=== PATIENT | female | born 1965 | race African-American/Black ===

== ENCOUNTER 2019-10-01 10:47 | Observation (INO) ==
[2019-10-01] MEDS ORDERED: diphenhydrAMINE 50 MG/1 ML VIAL IV STA (10:57)
[2019-10-01] MEDS ORDERED: FAMOTIDINE 20 MG/2 ML VIAL IV STA (10:57)
[2019-10-01] MEDS ORDERED: LABETALOL 20 MG/4 ML SYRINGE IV STA (10:57)
[2019-10-01] MEDS ORDERED: methylPREDNISolone SOD SUC 125 MG/2 ML VIAL IV STA (10:57)
[2019-10-01] MEDS ORDERED: diphenhydrAMINE 50 MG/1 ML VIAL ONE (10:58)
[2019-10-01] MEDS ORDERED: LABETALOL 20 MG/4 ML SYRINGE IV ONE (10:58)
[2019-10-01] MEDS ORDERED: methylPREDNISolone SOD SUC 125 MG/2 ML VIAL ONE (10:59)
[2019-10-01] MEDS ORDERED: FAMOTIDINE 20 MG/2 ML VIAL IV ONE (10:59)
[2019-10-01] MEDS: ALBUTEROL 2.5 MG/3 ML NEB RESP TX SCH (11:15)
[2019-10-01 11:47] LABS: Basophils % 0.3 % (0.0-0.8); Eosinophils % 0.7 % (0.00-10.9); Hematocrit 45.7 VOL% (35.7-47.0); Hemoglobin 15.5 GM/DL (12.0-16.0); Lymphocytes # 1.4 10*3/uL (1.4-4.0); Lymphocytes % 45.9 % (21.3-54.2); Mean Corpuscular HGB Conc 33.9 GM/DL (32-36); Mean Corpuscular Volume 98.3 FL (87-102); Mean Platelet Volume 9.6 FL (9.6-12.0); Monocytes % 10.9 % (1.7-12.7); Neutrophils % 42.2 % (38.7-73.9); Platelet Count 197 T/CUMM (130-400); Red Blood Count 4.65 MC/CUMM (3.8-5.5); Red Cell Distribution Width 13.6 % (9.3-17.3)
[2019-10-01 12:06] LABS: Calcium 8.8 MG/DL (8.5-10.1); Osmolality,Calculated 273.7 MOS/KG (273-304)
[2019-10-01] MEDS ORDERED: ONDANSETRON 4 MG/2 ML VIAL IV PRN (14:19)
[2019-10-01] MEDS ORDERED: DEXTROSE 50% 25 GM/50 ML VIAL IV PRN (14:19)
[2019-10-01] MEDS ORDERED: GLUCAGON 1 MG VIAL IM PRN (14:19)
[2019-10-01] MEDS ORDERED: diphenhydrAMINE 50 MG/1 ML VIAL IV PRN (15:48)
[2019-10-01] MEDS: SODIUM CHLORIDE 0.9% 1,000 ML IV SCH (16:08)
[2019-10-01] MEDS: NICOTINE 21 MG/24 HR PATCH TRANSDERM SCH (16:08)
[2019-10-01] MEDS: amLODIPine 5 MG TABLET PO SCH (16:09)
[2019-10-01] MEDS: CETIRIZINE 10 MG TABLET PO SCH (17:13)
[2019-10-01] MEDS ORDERED: FOLIC ACID 1 MG TABLET PO SCH (21:00)
[2019-10-02] MEDS: methylPREDNISolone SOD SUC 40 MG/1 ML VIAL IV SCH ×2 (00:42→11:39)
[2019-10-02] MEDS: SODIUM CHLORIDE 0.9% 1,000 ML IV SCH (05:24)
[2019-10-02 05:32] LABS: Barbiturates Screen,Urine Negative (Negative); Benzodiazepines Screen,Urine Negative (Negative); Cannabinoid Screen,Urine Positive (Negative); Opiate Screen,Urine Negative (Negative); Phencyclidine Screen,Urine Negative (Negative)
[2019-10-02 06:07] LABS: Basophils % 0.1 % (0.0-0.8); Hematocrit 44.8 VOL% (35.7-47.0); Immature Granulocytes % 0.3 %; Immature Granulocytes Absolute 0.02 #; Lymphocytes # 0.7 10*3/uL (1.4-4.0); Lymphocytes % 8.5 % (21.3-54.2); Mean Corpuscular HGB Conc 33.5 GM/DL (32-36); Mean Corpuscular Volume 98.7 FL (87-102); Mean Platelet Volume 9.5 FL (9.6-12.0); Monocytes % 1.2 % (1.7-12.7); Neutrophils % 89.9 % (38.7-73.9); Platelet Count 244 T/CUMM (130-400); Red Blood Count 4.54 MC/CUMM (3.8-5.5); Red Cell Distribution Width 13.5 % (9.3-17.3); White Blood Count 7.8 T/CUMM (4-12)
[2019-10-02 06:20] LABS: Calcium 9.1 MG/DL (8.5-10.1); Osmolality,Calculated 273.7 MOS/KG (273-304)
[2019-10-02] MEDS: NICOTINE 21 MG/24 HR PATCH TRANSDERM SCH (08:31)
[2019-10-02] MEDS: CETIRIZINE 10 MG TABLET PO SCH (08:32)
[2019-10-02] MEDS: amLODIPine 5 MG TABLET PO SCH (08:32)
[2019-10-02] MEDS ORDERED: FAMOTIDINE 20 MG TABLET PO SCH (09:00)
[2019-10-02 11:34] VITALS: BP 121/81
== END 2019-10-02 12:21 | disposition home or self-care (01) ==
LOC: EDUNIT# → EDBD → N.3E 10:47 → N.ED 10:47 → N.3E 15:15
PROVIDERS: ADMIT Internal Medicine; ATTEND Internal Medicine

== ENCOUNTER 2021-09-30 18:45 | Inpatient (IN) ==
[2021-09-30] MEDS ORDERED: THIAMINE INJ 100 MG, FOLIC ACID INJ 1 MG, MAGNESIUM SULF INJ 2 GM, MULTIVITAMIN INJ 10 ... IV STA (19:39)
[2021-09-30 20:31] LABS: Basophils % 0.2 % (0.0-0.8); Hematocrit 50.5 VOL% (35.7-47.0); Hemoglobin 17.3 GM/DL (12.0-16.0); Immature Granulocytes % 0.4 %; Immature Granulocytes Absolute 0.04 #; Lymphocytes # 0.6 10*3/uL (1.4-4.0); Lymphocytes % 6.1 % (21.3-54.2); Mean Corpuscular HGB Conc 34.3 GM/DL (32-36); Mean Corpuscular Volume 97.1 FL (87-102); Monocytes # 1.2 10*3/uL (0.11-0.8); Monocytes % 11.7 % (1.7-12.7); Neutrophils % 81.6 % (38.7-73.9); Platelet Count 256 T/CUMM (130-400); Red Cell Distribution Width 13.2 % (9.3-17.3); White Blood Count 10.4 T/CUMM (4-12)
[2021-09-30 20:57] LABS: Alanine Aminotransferase 83 U/L (13-56); Albumin 3.7 G/DL (3.4-5.0); Alkaline Phosphatase 97 U/L (45-117); Aspartate Amino Transferase 700 U/L (0-37); Blood Urea Nitrogen 14 MG/DL (7-18); Calcium 10.1 MG/DL (8.5-10.1); Carbon Dioxide 30 MMOL/L (21-32); Chloride 97 MMOL/L (98-107); Estimated Glom Filtration Rate 72 ML/MIN; Glucose 112 MG/DL (74-106); Osmolality,Calculated 271.1 MOS/KG (273-304); Potassium 4.3 MMOL/L (3.5-5.1); Sodium 135 MMOL/L (136-145); Total Protein 9.1 G/DL (6.4-8.2)
[2021-09-30] MEDS ORDERED: SODIUM CHLORIDE 0.9% 1,500 ML IV STA (21:35)
[2021-09-30 21:39] LABS: Mucus,Urine Occasional /LPF (Occasional); Squamous Epithelial Cell,Urine Occasional /HPF (0-10)
[2021-09-30 21:40] LABS: Glucose,Urine (UA) Negative (Negative); Protein,Urine 100 mg/dL (Negative); Urine Appearance Clear (Clear); Urine Color Yellow (Yellow); Urine Specific Gravity > 1.030 (1.001-1.035); Urine pH 5.5 (4.5-8.0)
[2021-09-30 21:41] LABS: Bilirubin,Urine Small mg/dL (Negative); Blood, Urine Moderate mg/dL (Negative); Ketones,Urine Moderate mg/dL (Negative); Nitrite,Urine Negative (Negative); Urine Urobilinogen 0.2 eU/dL (<2.0)
[2021-09-30 21:55] LABS: Barbiturates Screen,Urine Negative (Negative); Benzodiazepines Screen,Urine Negative (Negative); Cannabinoid Screen,Urine Positive (Negative); Opiate Screen,Urine Negative (Negative); Phencyclidine Screen,Urine Negative (Negative)
[2021-09-30] MEDS ORDERED: cefTRIAXone 1,000 MG in SODIUM CHLORIDE 0.9% 100 ML IV STA (21:59)
[2021-09-30] MEDS ORDERED: FUROSEMIDE 40 MG/4 ML VIAL IV STA (23:32)
[2021-10-01] MEDS ORDERED: ASPIRIN EC 325 MG TABLET PO STA (00:18)
[2021-10-01] MEDS ORDERED: ASPIRIN 325 MG TABLET ONE (00:19)
[2021-10-01] MEDS ORDERED: ENOXAPARIN 30 MG/0.3 ML SYRINGE SUBCUT STA (00:30)
[2021-10-01] MEDS ORDERED: NITROGLYCERIN DRIP 50 MG/250 ML BOTTLE IV SCH (00:30)
[2021-10-01] MEDS ORDERED: MORPHINE 2 MG/1 ML SYRINGE IV STA (00:34)
[2021-10-01] MEDS ORDERED: ENOXAPARIN 60 MG/0.6 ML SYRINGE SUBCUT STA (00:35)
[2021-10-01] MEDS ORDERED: ONDANSETRON 4 MG/2 ML VIAL IV STA (00:37)
[2021-10-01] MEDS: NITROGLYCERIN SL 0.4 MG TABLET SL PRN ×3 (00:45→00:57)
[2021-10-01] MEDS ORDERED: ALBUTEROL 2.5 MG/3 ML NEB RESP TX PRN (01:45)
[2021-10-01] MEDS ORDERED: ONDANSETRON 4 MG/2 ML VIAL IV PRN (01:53)
[2021-10-01] MEDS ORDERED: hydrALAZINE 20 MG/1 ML VIAL IV PRN (01:53)
[2021-10-01 02:42] VITALS: BP 155/113
[2021-10-01 03:27] LABS: Basophils % 0.1 % (0.0-0.8); Hematocrit 46.6 VOL% (35.7-47.0); Immature Granulocytes % 0.7 %; Immature Granulocytes Absolute 0.09 #; Lymphocytes # 0.9 10*3/uL (1.4-4.0); Lymphocytes % 7.2 % (21.3-54.2); Mean Corpuscular HGB Conc 34.3 GM/DL (32-36); Mean Corpuscular Volume 96.9 FL (87-102); Mean Platelet Volume 10.6 FL (9.6-12.0); Monocytes # 1.5 10*3/uL (0.11-0.8); Monocytes % 11.9 % (1.7-12.7); Neutrophils % 80.1 % (38.7-73.9); Platelet Count 210 T/CUMM (130-400); Red Blood Count 4.81 MC/CUMM (3.8-5.5); Red Cell Distribution Width 13.2 % (9.3-17.3); White Blood Count 12.8 T/CUMM (4-12)
[2021-10-01 03:44] LABS: Albumin 2.8 G/DL (3.4-5.0); Bilirubin,Total 0.6 MG/DL (0.20-1.00); Calcium 9.5 MG/DL (8.5-10.1); Osmolality,Calculated 272.8 MOS/KG (273-304); Total Protein 7.4 G/DL (6.4-8.2)
[2021-10-01 03:44] LABS: Albumin 2.8 G/DL (3.4-5.0); Bilirubin,Direct 0.15 MG/DL (0.0-0.20); Bilirubin,Indirect 0.5 MG/DL (0.0-1.0); Bilirubin,Total 0.6 MG/DL (0.20-1.00); Total Protein 7.5 G/DL (6.4-8.2)
[2021-10-01 04:10] LABS: Risk Ratio 1.99; Thyroid Stimulating Hormone 0.657 uIU/ml (0.358-3.74); VLDL Cholesterol 11.2 MG/DL
[2021-10-01 06:39] LABS: HIV Antigen/Antibody Result Nonreactive (Nonreactive); Hepatitis B Core IgM Quant 0.11 Index; Hepatitis B Surface Ag Quant 0.25 Index; Hepatitis B Surface Ag Result Non-Reactive (NonReactive); Hepatitis C Virus Ab Quant > 11.00 Index; Hepatitis C Virus Ab Result Reactive (NonReactive)
[2021-10-01] MEDS ORDERED: carvediloL 3.125 MG TABLET PO SCH (09:00)
[2021-10-01] MEDS: ASPIRIN 325 MG TABLET PO SCH (09:30)
[2021-10-01] MEDS: methylPREDNISolone SOD SUC 40 MG/1 ML VIAL IV SCH ×3 (09:30→22:15)
[2021-10-01] MEDS: PANTOPRAZOLE 40 MG TABLET PO SCH (09:30)
[2021-10-01] MEDS: NYSTATIN 500,000 UNIT/5 ML UDCUP SWISH/SWAL SCH ×4 (09:31→22:13)
[2021-10-01] MEDS: NICOTINE 21 MG/24 HR PATCH TRANSDERM PRN (09:31)
[2021-10-01] MEDS ORDERED: DIAZEPAM 5 MG TABLET PO PRN (09:43)
[2021-10-01] MEDS: ENOXAPARIN 60 MG/0.6 ML SYRINGE SUBCUT SCH ×2 (12:26→22:14)
[2021-10-01] MEDS ORDERED: ENOXAPARIN 60 MG/0.6 ML SYRINGE SUBCUT SCH (12:30)
[2021-10-01] MEDS: ALBUTEROL/IPRATROPIUM 3 ML NEB RESP TX SCH ×3 (13:44→19:39)
[2021-10-01] MEDS ORDERED: ALUMINUM/MAGNES/SIMETH MAX STR 30 ML UDCUP PO PRN (15:56)
[2021-10-01] MEDS: DIAZEPAM 5 MG TABLET PO PRN (17:18)
[2021-10-01] MEDS: carvediloL 3.125 MG TABLET PO SCH (22:13)
[2021-10-01] MEDS: FOLIC ACID 1 MG TABLET PO SCH (22:13)
[2021-10-01] MEDS: cefTRIAXone 1,000 MG in SODIUM CHLORIDE 0.9% 100 ML IV SCH (22:14)
[2021-10-02] MEDS: ALBUTEROL/IPRATROPIUM 3 ML NEB RESP TX SCH ×4 (00:25→18:59)
[2021-10-02 03:52] LABS: Basophils % 0.1 % (0.0-0.8); Hematocrit 49.4 VOL% (35.7-47.0); Hemoglobin 16.8 GM/DL (12.0-16.0); Immature Granulocytes % 0.7 %; Immature Granulocytes Absolute 0.12 #; Lymphocytes # 0.7 10*3/uL (1.4-4.0); Mean Corpuscular Volume 97.1 FL (87-102); Mean Platelet Volume 11.1 FL (9.6-12.0); Monocytes # 0.9 10*3/uL (0.11-0.8); Monocytes % 5.3 % (1.7-12.7); Neutrophils % 89.9 % (38.7-73.9); Platelet Count 228 T/CUMM (130-400); Red Blood Count 5.09 MC/CUMM (3.8-5.5); Red Cell Distribution Width 13.2 % (9.3-17.3); White Blood Count 16.6 T/CUMM (4-12)
[2021-10-02 04:14] LABS: Albumin 2.1 G/DL (3.4-5.0); Bilirubin,Total 0.5 MG/DL (0.20-1.00); Calcium 9.4 MG/DL (8.5-10.1); Osmolality,Calculated 272.1 MOS/KG (273-304); Potassium 4.3 MMOL/L (3.5-5.1); Total Protein 6.9 G/DL (6.4-8.2)
[2021-10-02 04:26] LABS: Lymphocytes 3 % (20-55); Total Cells Counted 100
[2021-10-02 04:51] LABS: High Sensitive Troponin I* 43457.4 ng/L (0-54)
[2021-10-02] MEDS: methylPREDNISolone SOD SUC 40 MG/1 ML VIAL IV SCH ×3 (06:43→23:38)
[2021-10-02] MEDS: ASPIRIN 325 MG TABLET PO SCH (08:36)
[2021-10-02] MEDS: NICOTINE 21 MG/24 HR PATCH TRANSDERM PRN (08:36)
[2021-10-02] MEDS: DIAZEPAM 5 MG TABLET PO PRN ×4 (08:36→23:37)
[2021-10-02] MEDS: PANTOPRAZOLE 40 MG TABLET PO SCH (08:36)
[2021-10-02] MEDS: NYSTATIN 500,000 UNIT/5 ML UDCUP SWISH/SWAL SCH ×4 (08:37→21:11)
[2021-10-02] MEDS: carvediloL 3.125 MG TABLET PO SCH ×2 (08:37→21:11)
[2021-10-02] MEDS: ENOXAPARIN 60 MG/0.6 ML SYRINGE SUBCUT SCH ×2 (13:57→23:37)
[2021-10-02] MEDS: FOLIC ACID 1 MG TABLET PO SCH (21:11)
[2021-10-02] MEDS: cefTRIAXone 1,000 MG in SODIUM CHLORIDE 0.9% 100 ML IV SCH (21:11)
[2021-10-03] MEDS: ALBUTEROL/IPRATROPIUM 3 ML NEB RESP TX SCH ×3 (00:09→12:10)
[2021-10-03 04:29] LABS: Basophils % 0.1 % (0.0-0.8); Hematocrit 45.9 VOL% (35.7-47.0); Hemoglobin 15.6 GM/DL (12.0-16.0); Immature Granulocytes % 0.6 %; Lymphocytes # 0.5 10*3/uL (1.4-4.0); Lymphocytes % 2.8 % (21.3-54.2); Mean Corpuscular Volume 97.9 FL (87-102); Mean Platelet Volume 11.1 FL (9.6-12.0); Monocytes # 0.5 10*3/uL (0.11-0.8); Neutrophils % 93.5 % (38.7-73.9); Platelet Count 219 T/CUMM (130-400); Red Blood Count 4.69 MC/CUMM (3.8-5.5); Red Cell Distribution Width 13.1 % (9.3-17.3); White Blood Count 16.1 T/CUMM (4-12)
[2021-10-03 04:49] LABS: Alanine Aminotransferase 34 U/L (13-56); Albumin 1.8 G/DL (3.4-5.0); Alkaline Phosphatase 79 U/L (45-117); Aspartate Amino Transferase 93 U/L (0-37); Bilirubin,Total < 0.39 MG/DL (0.20-1.00); Blood Urea Nitrogen 18 MG/DL (7-18); Calcium 9.1 MG/DL (8.5-10.1); Carbon Dioxide 27 MMOL/L (21-32); Chloride 104 MMOL/L (98-107); Estimated Glom Filtration Rate 102 ML/MIN; Glucose 153 MG/DL (74-106); Potassium 3.9 MMOL/L (3.5-5.1); Sodium 136 MMOL/L (136-145); Total Protein 6.4 G/DL (6.4-8.2)
[2021-10-03 04:55] LABS: Band Neutrophils 2 % (0-10); Lymphocytes 1 % (20-55); Microcytosis Slight; Total Cells Counted 100
[2021-10-03 04:56] LABS: Platelet Estimate Normal
[2021-10-03] MEDS: methylPREDNISolone SOD SUC 40 MG/1 ML VIAL IV SCH (06:27)
[2021-10-03] MEDS: ASPIRIN 325 MG TABLET PO SCH (09:17)
[2021-10-03] MEDS: PANTOPRAZOLE 40 MG TABLET PO SCH (09:17)
[2021-10-03] MEDS: NYSTATIN 500,000 UNIT/5 ML UDCUP SWISH/SWAL SCH ×3 (09:17→16:06)
[2021-10-03] MEDS: NICOTINE 21 MG/24 HR PATCH TRANSDERM PRN (09:21)
[2021-10-03] MEDS: carvediloL 3.125 MG TABLET PO SCH (09:21)
[2021-10-03] MEDS: ENOXAPARIN 60 MG/0.6 ML SYRINGE SUBCUT SCH (12:07)
[2021-10-03] MEDS ORDERED: methylPREDNISolone SOD SUC 40 MG/1 ML VIAL IV SCH (21:00)
== END 2021-10-03 17:30 | disposition home or self-care (01) | DRG 281 ==
LOC: N.ED 18:45 → SUATTDRO 10-01 01:45 → N.EDINP 10-01 01:45 → N.ICU 10-01 02:15
PROVIDERS: ADMIT Internal Medicine; ATTEND Family Medicine

== ENCOUNTER 2021-10-09 04:11 | Observation (INO) ==
[2021-10-09 05:00] LABS: Mucus,Urine Occasional /LPF (Occasional); RBC,Urine 10 /HPF (0-4); Squamous Epithelial Cell,Urine Few /HPF (0-10)
[2021-10-09 05:01] LABS: Bilirubin,Urine Negative (Negative); Blood, Urine Trace mg/dL (Negative); Glucose,Urine (UA) Negative (Negative); Ketones,Urine Negative (Negative); Nitrite,Urine Negative (Negative); Protein,Urine Negative (Negative); Urine Color y (Yellow)
[2021-10-09 05:02] LABS: Basophils % 0.2 % (0.0-0.8); Eosinophils % 0.1 % (0.00-10.9); Hematocrit 39.5 VOL% (35.7-47.0); Hemoglobin 13.4 GM/DL (12.0-16.0); Immature Granulocytes % 0.5 %; Immature Granulocytes Absolute 0.05 #; Lymphocytes # 1.8 10*3/uL (1.4-4.0); Lymphocytes % 17.5 % (21.3-54.2); Mean Corpuscular HGB Conc 33.9 GM/DL (32-36); Mean Corpuscular Volume 96.6 FL (87-102); Mean Platelet Volume 9.7 FL (9.6-12.0); Monocytes # 1.2 10*3/uL (0.11-0.8); Monocytes % 11.4 % (1.7-12.7); Neutrophils % 70.3 % (38.7-73.9); Platelet Count 338 T/CUMM (130-400); Red Blood Count 4.09 MC/CUMM (3.8-5.5); Red Cell Distribution Width 12.6 % (9.3-17.3); White Blood Count 10.2 T/CUMM (4-12)
[2021-10-09] MEDS ORDERED: cefTRIAXone 1,000 MG in SODIUM CHLORIDE 0.9% 100 ML IV STA (05:10)
[2021-10-09 05:20] LABS: Albumin 2.6 G/DL (3.4-5.0); Bilirubin,Total 0.5 MG/DL (0.20-1.00); Osmolality,Calculated 276.7 MOS/KG (273-304); Potassium 4.3 MMOL/L (3.5-5.1); Total Protein 6.8 G/DL (6.4-8.2)
[2021-10-09 05:26] LABS: Barbiturates Screen,Urine Negative (Negative); Benzodiazepines Screen,Urine Positive (Negative); Cannabinoid Screen,Urine Positive (Negative); Opiate Screen,Urine Negative (Negative); Phencyclidine Screen,Urine Negative (Negative)
[2021-10-09] MEDS ORDERED: SODIUM CHLORIDE 0.9% 1,000 ML IV STA (07:38)
[2021-10-09 07:57] LABS: INR 0.9; PT Patient Result 10.4 SECS (10.5-12.0)
[2021-10-09] MEDS: ENOXAPARIN 40 MG/0.4 ML SYRINGE SUBCUT SCH (08:46)
[2021-10-09] MEDS: PANTOPRAZOLE 40 MG TABLET PO SCH (08:47)
[2021-10-09] MEDS: NICOTINE 21 MG/24 HR PATCH TRANSDERM SCH (08:47)
[2021-10-09] MEDS: ASPIRIN 325 MG TABLET PO SCH (09:21)
[2021-10-09] MEDS: FUROSEMIDE 40 MG/4 ML VIAL IV SCH (12:34)
[2021-10-09] MEDS ORDERED: ATORVASTATIN 40 MG TABLET PO SCH (21:00)
[2021-10-09] MEDS ORDERED: methylPREDNISolone SOD SUC 125 MG/2 ML VIAL IV ONE (22:49)
[2021-10-09] MEDS ORDERED: diphenhydrAMINE 50 MG/1 ML VIAL IV ONE (22:50)
[2021-10-10] MEDS ORDERED: cefTRIAXone 1,000 MG in SODIUM CHLORIDE 0.9% 100 ML IV SCH (05:00)
[2021-10-10 05:03] LABS: Basophils % 0.1 % (0.0-0.8); Hematocrit 43.2 VOL% (35.7-47.0); Hemoglobin 14.3 GM/DL (12.0-16.0); Immature Granulocytes % 0.5 %; Immature Granulocytes Absolute 0.04 #; Lymphocytes # 0.6 10*3/uL (1.4-4.0); Lymphocytes % 6.8 % (21.3-54.2); Mean Corpuscular HGB Conc 33.1 GM/DL (32-36); Mean Corpuscular Volume 98.4 FL (87-102); Mean Platelet Volume 9.9 FL (9.6-12.0); Monocytes # 0.1 10*3/uL (0.11-0.8); Monocytes % 1.2 % (1.7-12.7); Neutrophils % 91.4 % (38.7-73.9); Platelet Count 383 T/CUMM (130-400); Red Blood Count 4.39 MC/CUMM (3.8-5.5); Red Cell Distribution Width 12.8 % (9.3-17.3); White Blood Count 8.1 T/CUMM (4-12)
[2021-10-10 05:38] LABS: Lymphocytes 5 % (20-55); Total Cells Counted 100
[2021-10-10 05:39] LABS: Hypochromia Slight; Microcytosis Slight
[2021-10-10 05:40] LABS: Calcium 9.1 MG/DL (8.5-10.1); Osmolality,Calculated 284.3 MOS/KG (273-304)
[2021-10-10] MEDS: ENOXAPARIN 40 MG/0.4 ML SYRINGE SUBCUT SCH (09:49)
[2021-10-10] MEDS: FUROSEMIDE 40 MG/4 ML VIAL IV SCH (09:49)
[2021-10-10] MEDS: PANTOPRAZOLE 40 MG TABLET PO SCH (09:50)
[2021-10-10] MEDS: NICOTINE 21 MG/24 HR PATCH TRANSDERM SCH (09:51)
[2021-10-10] MEDS: ASPIRIN 325 MG TABLET PO SCH (09:56)
[2021-10-10 11:46] VITALS: BP 116/82
== END 2021-10-10 16:36 | disposition home or self-care (01) ==
LOC: EDBD → EDUNIT# → N.ED 04:11 → N.EDINP 04:11 → SUATTDRO 07:40 → N.TELEN 12:30
PROVIDERS: ADMIT Internal Medicine; ATTEND Internal Medicine Geriatric Medicine